=== PATIENT | male | born 1975 | race Caucasian/White ===

== ENCOUNTER 2016-12-28 21:56 | Emergency (ER) | payer BC ==
[~2016-12-28] VITALS: Ht 170.2 cm; Wt 71.0 kg
[2016-12-28 22:05] VITALS: Ht 170.2 cm; Wt 71.0 kg
[2016-12-28] MEDS ORDERED: ONDANSETRON 4 MG INJ IV STA (22:47)
[2016-12-28] MEDS ORDERED: morphine 4 MG/ML VIAL IV STA (22:47)
[2016-12-28] MEDS ORDERED: SOD CHLORIDE 0.9% 1,000 ML IV STA (22:47)
[2016-12-28] MEDS ORDERED: KETOROLAC 30 MG INJ IV STA (22:47)
--- NOTE | 2016-12-28 23:33 | RADRPT ---
PROCEDURE: CT ABDOMEN AND PELVIS WITHOUT CONTRAST: CLINICAL INDICATION: 41 years of age, male. Right flank pain. COMPARISON: Report of CT August 08, 2013 TECHNIQUE: CT of the abdomen, and pelvis was performed without intravenous contrast. Oral contrast w as not administered prior to the examination. Coronal and sagittal reformatted images were obtained from the axial source images. Images were revi ewed on a high-resolution PACS workstation. Dose information: Based on a 32 cm phantom, the estimated radiation dose (CTDI vol mGy) for each ser ies in this exam is 8 . The estimated cumulative dose (DLP mGy-cm) is 485 . FINDINGS: In the absence of intravenous contrast, the study constitutes a limited assessment of the solid orga ns and vessels. LUNG BASES: Mild dependent atelectasis. ABDOMEN/PELVIS: Liver: Normal. Gallbladder: Normal. Bile ducts: No intrahepatic or extrahepatic biliary duct dilatation. Spleen: Normal. Pancreas: Normal. Adrenal glands: Normal. Kidneys and ureters: There is a 0.8 cm obstructing calculus in the distal right ureter at the right UVJ with moderate right hydronephrosis and hydroureter and right perinephric fat stranding. There a re bilateral nonobstructing renal calculi measuring up to 0.4 cm that are more numerous on the right . Negative for left hydronephrosis. Bilateral renal parenchymal hypodensities cannot be characteri zed without intravenous contrast but statistically represent cysts. Aorta and IVC: Mild atherosclerosis aorta. No aneurysm. Lymph nodes: Normal. Gastrointestinal tract: Stomach is moderately distended from a recent meal. Bowel loops are otherwis e decompressed. Appendix: Normal Bladder: Normal. Pelvic Organs: Normal. Peritoneal cavity: No free fluid or free intraperitoneal air. Abdominal wall: Normal. 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 Disk bulge at L5-S1. No suspicious bone lesi ons. IMPRESSION: 0.8 cm obstructing calculus at the right UVJ with moderate right hydronephrosis and hydroureter. Bilateral nonobstructing renal calculi more numerous on the right. RPTAT: HCTS Lorenzo Smith, Physician Date Time Electronically viewed and signed by Lorenzo Smith, Physician on 12/28/2016 23:33 CS/
[2016-12-28 23:43] LABS: BASOPHIL # 0.1 10^3/ul (0.0-0.1); BASOPHILS % 0.5 % (0.0-2.0); EOSINOPHILS # 0.2 10^3/ul (0.0-0.5); EOSINOPHILS % 1.1 % (0.0-7.0); HEMATOCRIT 43.7 % (42.0-52.0); HEMOGLOBIN 14.5 g/dl (14.0-18.0); LYMPHOCYTES # 2.2 10^3/ul (0.8-2.9); LYMPHOCYTES % 14.6 % (15.0-51.0); MEAN CORPUSCULAR HEMOGLOBIN 30.5 pg (29.0-33.0); MEAN CORPUSCULAR HGB CONC 33.2 g/dl (32.0-37.0); MEAN PLATELET VOLUME 10.3 fl (7.4-10.4); MONOCYTES % 6.4 % (0.0-11.0); NEUTROPHIL # 11.7 10^3/ul (1.6-7.5); PLATELET COUNT 266 10^3/UL (140-415); RED BLOOD COUNT 4.75 10^6/ul (4.70-6.10); RED CELL DISTRIBUTION WIDTH 12.5 % (11.5-14.5); WHITE BLOOD COUNT 15.1 10^3/ul (4.8-10.8)
--- NOTE | 2016-12-28 23:44 | ERD ---
ER Documentation Chief Complaint Date/Time DATE: 12/28/16 Chief Complaint Right flank pain HPI The patient is a 41-year-old male who presents to the Emergency Department with complaint of flank pain. The patient reports that his symptoms began at 8:00 am this morning, with onset of right-sided flank pain radiating towards the right groin. He notes that his pain is constant, though waxing and waning in intensity. He reports his current pain as 4/10, but notes that his pain increases in waves to 10/10 intermittently. He took a dose of Tylenol at noon today, with very minimal relief, and has not taken any further medication today. He admits to associated nausea, with one episode of nonbilious, nonbloody emesis. Otherwise, denies any dysuria, urinary frequency, urgency, hesitancy, hematuria. Denies fevers, sweats, chills, chest pain, palpitations, shortness of breath. The patient reports a history of prior kidney stones - four times- and states that his current symptoms feel similar. No other complaints at this time. ROS All systems reviewed and are negative except as per history of present illness. Medications Home Meds Active Scripts Tamsulosin Hcl* (Flomax*) 0.4 Mg Cap.er.24h, 0.4 MG PO QPM, #30 CAP Prov:REN PATRICK PA-C 12/28/16 Ibuprofen* (Motrin*) 600 Mg Tab, 600 MG PO Q6, #30 TAB Prov:REN PATRICK PA-C 12/28/16 Hydrocodone/Acetaminophen (Conklin 5-325 Tablet) 1 Each Tablet, 1 EACH PO Q6, #15 TAB Prov:REN PATRICK PA-C 12/28/16 Allergies Allergies: Coded Allergies: No Known Allergy (Unverified , 08/08/13) PMhx/Soc History of Surgery: No Anesthesia Reaction: No Hx Neurological Disorder: No Hx Respiratory Disorders: No Hx Cardiac Disorders: No Hx Psychiatric Problems: No Hx Miscellaneous Medical Probl: Yes (KIDNEY STONES) Hx Alcohol Use: Yes (OCCASSIONAL) Hx Substance Use: No Hx Tobacco Use: No Physical Exam Vitals Vital Signs Date Time Temp Pulse Resp B/P Pulse Ox O2 Delivery O2 Flow Rate FiO2 12/29/16 03:01 98.5 88 20 130/82 100 Room Air 12/28/16 22:05 98.5 97 20 163/89 100 Physical Exam GENERAL: Well-developed, well-nourished, in no acute distress HEENT: Head is normocephalic, atraumatic. No scleral pallor or icterus. Pupils equal, round and reactive to light. Extraocular movements intact. Conjunctiva pink. Moist mucous membranes. NECK: Supple. Full range of motion. RESPIRATORY: Lungs are clear to auscultation bilaterally. Equal breath sounds. Normal expiratory effort. CARDIOVASCULAR: Regular rate and rhythm. S1 and S2 normal. No murmurs, rubs, or gallops. GASTROINTESTINAL: Abdomen is soft, nontender, and nondistended. No guarding, no rebound tenderness. Normal bowel sounds. No gross peritonitis. No McBurney point tenderness. Negative Lamb's sign. FLANK: No CVA tenderness, no mass or swelling. BACK: No midline tenderness. No paraspinal tenderness. EXTREMITIES: No clubbing, cyanosis, or edema. Normal skin perfusion. Moving all extremities. Muscle tone is normal. No focal swelling or erythema. Distal pulses are palpable, 2+ bilaterally. Capillary refill is less than 2 seconds. NEUROLOGIC: The patient is alert, awake, and oriented x 3. No focal neurologic deficits. INTEGUMENT: Skin is clean, dry and intact. No rashes, lesions or petechiae present. Normal turgor. PSYCHIATRIC: Appropriate; Cooperative. Result Diagram: 12/28/16230912/28/162309 Results 24 hrs Laboratory Tests Test 12/28/16 23:10 12/29/16 01:00 White Blood Count 15.110^3/ul Red Blood Count 4.7510^6/ul Hemoglobin 14.5g/dl Hematocrit 43.7% Mean Corpuscular Volume 92.0fl Mean Corpuscular Hemoglobin 30.5pg Mean Corpuscular Hemoglobin Concent 33.2g/dl Red Cell Distribution Width 12.5% Platelet Count 35250^3/UL Mean Platelet Volume 10.3fl Neutrophils % 77.0% Lymphocytes % 14.6% Monocytes % 6.4% Eosinophils % 1.1% Basophils % 0.5% Nucleated Red Blood Cells % 0.0/100WBC Neutrophils # 11.710^3/ul Lymphocytes # 2.210^3/ul Monocytes # 1.010^3/ul Eosinophils # 0.210^3/ul Basophils # 0.110^3/ul Nucleated Red Blood Cells # 0.010^3/ul Sodium Level 143mmol/L Potassium Level 3.8mmol/L Chloride Level 99mmol/L Carbon Dioxide Level 29mmol/L Anion Gap 19 Blood Urea Nitrogen 23mg/dl Creatinine 1.39mg/dl Glucose Level 125mg/dl Calcium Level 9.4mg/dl Total Bilirubin 0.1mg/dl Direct Bilirubin 0.00mg/dl Indirect Bilirubin 0.1mg/dl Aspartate Amino Transf (AST/SGOT) 26IU/L Alanine Aminotransferase (ALT/SGPT) 41IU/L Alkaline Phosphatase 108IU/L Total Protein 7.8g/dl Albumin 4.1g/dl Globulin 3.70g/dl Albumin/Globulin Ratio 1.10 Lipase 72U/L Urine Color STRAW Urine Clarity CLEAR Urine pH 6.0 Urine Specific [place] 1.017 Urine Ketones NEGATIVEmg/dL Urine Nitrite NEGATIVEmg/dL Urine Bilirubin NEGATIVEmg/dL Urine Urobilinogen NEGATIVEmg/dL Urine Leukocyte Esterase NEGATIVELeu/ul Urine Microscopic RBC > 182/HPF Urine Microscopic WBC 16/HPF Urine Amorphous Crystals MANY/HPF Urine Hemoglobin 3+mg/dL Urine Glucose NEGATIVEmg/dL Urine Total Protein NEGATIVEmg/dl Current Medications Medications (Trade) Dose Ordered Sig/Temitope Route PRN Reason Start Time Stop Time Status Last Admin Dose Admin Sodium Chloride (NS) 1,000 ml @ 1,000 mls/hr Q1H STAT IV 12/28/16 22:47 12/28/16 23:46 DC 12/28/16 23:40 Morphine Sulfate (morphine) 4 mg ONCE STAT IV 12/28/16 22:47 12/28/16 22:49 DC 12/28/16 23:16 Ondansetron HCl (Zofran Inj) 4 mg ONCE STAT IV 12/28/16 22:47 12/28/16 22:49 DC 12/28/16 23:15 Ketorolac Tromethamine (Toradol) 30 mg ONCE STAT IV 12/28/16 22:47 12/28/16 22:49 DC 12/28/16 23:15 Morphine Sulfate (morphine) 4 mg ONCE STAT IV 12/29/16 02:08 12/29/16 02:09 DC 12/29/16 02:21 Tamsulosin HCl (Flomax) 0.4 mg ONCE ONCE PO 12/29/16 02:30 12/29/16 02:31 DC 12/29/16 02:28 Procedures/MDM EMERGENCY DEPARTMENT COURSE: The patient was stable throughout the ED course. I kept the patient informed of all laboratory and imaging results throughout the ED course. IV access established by nursing staff. Fluids, Toradol, Morphine, Zofran administered. Laboratory testing and CT imaging ordered. On reevaluation, the patient reports no new complaints and decreased pain. The patient case was reviewed and discussed with ED attending/supervising physician, Dr. Ford, who agrees with the plan of care, including labs, treatment and advanced imaging as appropriate. The patient's presentation, laboratory results and imaging results were discussed at length with Dr. Ford, who consulted urologist, Dr. Rodriguez, regarding patient's care. Per recommendations of Dr. Rodriguez and Dr. Ford, the patient is to be discharged home with prescriptions for Tamsulosin and pain medications to follow up with his primary medical provider and urologist as an outpatient. DIAGNOSTIC TESTS AND INTERPRETATION: PROCEDURE: CT ABDOMEN AND PELVIS WITHOUT CONTRAST: CLINICAL INDICATION: 41 years of age, male. Right flank pain. COMPARISON: Report of CT August 08, 2013 TECHNIQUE: CT of the abdomen, and pelvis was performed without intravenous contrast. Oral contrast was not administered prior to the examination. Coronal and sagittal reformatted images were obtained from the axial source images. Images were reviewed on a high-resolution PACS workstation. Dose information: Based on a 32 cm phantom, the estimated radiation dose (CTDI vol mGy) for each series in this exam is 8 . The estimated cumulative dose ( DLP mGy-cm) is 485 . FINDINGS: In the absence of intravenous contrast, the study constitutes a limited assessment of the solid organs and vessels. LUNG BASES: Mild dependent atelectasis. ABDOMEN/PELVIS: Liver: Normal. Gallbladder: Normal. Bile ducts: No intrahepatic or extrahepatic biliary duct dilatation. Spleen: Normal. Pancreas: Normal. Adrenal glands: Normal. Kidneys and ureters: There is a 0.8 cm obstructing calculus in the distal right ureter at the right UVJ with moderate right hydronephrosis and hydroureter and right perinephric fat stranding. There are bilateral nonobstructing renal calculi measuring up to 0.4 cm that are more numerous on the right. Negative for left hydronephrosis. Bilateral renal parenchymal hypodensities cannot be characterized without intravenous contrast but statistically represent cysts. Aorta and IVC: Mild atherosclerosis aorta. No aneurysm. Lymph nodes: Normal. Gastrointestinal tract: Stomach is moderately distended from a recent meal. Bowel loops are otherwise decompressed. Appendix: Normal Bladder: Normal. Pelvic Organs: Normal. Peritoneal cavity: No free fluid or free intraperitoneal air. Abdominal wall: Normal. 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 Disk bulge at L5-S1. No suspicious bone lesions. IMPRESSION: 0.8 cm obstructing calculus at the right UVJ with moderate right hydronephrosis and hydroureter. Bilateral nonobstructing renal calculi more numerous on the right. Physician Tanya Date Time Electronically viewed and signed by Lorenzo Smith Physician on 12/28/2016 23: 33 MEDICAL DECISION MAKING: This is a 41-year-old male presenting to the Emergency Department with complaint of right flank pain. He had no lower abdominal tenderness or McBurney point tenderness to suggest appendicitis. Abdomen was soft, non-tender, non- distended, no indication of acute/surgical abdomen. No RUQ tenderness to suggest cholecystitis, choledocholithiasis. Differential diagnosis includes, but is not limited to, AAA, nephrolithiasis, cystitis, pyelonephritis, biliary colic, pancreatitis, appendicitis, aortic dissection, mesenteric ischemia, hernia, perforated viscous, diverticulitis, bowel obstruction, cancer, testicular torsion, fibroids, shingles, retroperitoneal abscess/ hematoma. CBC reveals no significant anemia. No significant electrolyte abnormalities noted to require medication replacement. No transaminitis. Creatinine and BUN mildly elevated, 1.39 and 23, respectively. Signs and symptoms not consistent with urinary tract infection, and urine dip reveals no leukocyte esterase, no nitrites. I do not suspect pyelonephritis or cystitis. CT abdomen and pelvis reveals a 0.8 cm obstructing calculus at the right UVJ with moderate right hydronephrosis and hydroureter, consistent with a diagnosis of acute ureterolithiasis, and likely, ureteral colic, causing the patient's right flank pain. After rest and administration of fluids and medications, the patient reports no new complaints, and significantly decreased pain. The patient's case was discussed with ED physician, Dr. Ford, and urologist, Dr. Rodriguez, who recommend discharge home. At this time, the patient is in stable condition and therefore can be discharged home with prescriptions for Conklin, Ibuprofen and Flomax, and given strict return precautions for signs of deteriorating or worsening condition. The patient is advised to follow up with their primary care provider and urologist within 2-3 days for reevaluation and further management, or return to the ER sooner for any worsening symptoms. I shared my medical decision making and plan with the patient at length and in great detail, and the patient verbally understands and agrees with the plan for further observation and care as an outpatient. At the time of discharge, all questions were answered. Departure Diagnosis: Primary Impression: Ureterolithiasis Additional Impressions: Right flank pain Ureteral colic Condition: Stable Patient Instructions: Kidney Stone W/ Colic, Preventing Kidney Stones, Understanding Kidney Stones Referrals: REJI RODRIGUEZ MD, RICHARD MD Additional Instructions: Call your primary care doctor and urologist TOMORROW for an appointment during the next 2-3 days.See the doctor sooner or return here if your condition worsens before your appointment time. REN PATRICK PA-C Dec 28, 2016 23:44
[2016-12-28] MEDS ORDERED: HYDR-906 PO (23:45)
[2016-12-28] MEDS ORDERED: IBUP-1542 PO (23:45)
[2016-12-28] MEDS ORDERED: TAMS-14 PO (23:45)
[2016-12-29] LABS: ALBUMIN 4.1 g/dl (3.3-4.9); ALBUMIN/GLOBULIN RATIO 1.1; BILIRUBIN,INDIRECT 0.1 mg/dl (0-1.1); BILIRUBIN,TOTAL 0.1 mg/dl (0.2-1.3); CALCIUM 9.4 mg/dl (8.4-10.2); CREATININE 1.39 mg/dl (0.61-1.24); POTASSIUM 3.8 mmol/L (3.5-5.1); TOTAL PROTEIN 7.8 g/dl (6.1-8.1)
[2016-12-29] MEDS ORDERED: morphine 4 MG/ML VIAL IV STA (02:08)
[2016-12-29 02:14] LABS: UR AMORPHOUS CRYSTAL MANY /HPF (NONE SEEN)
[2016-12-29 02:15] LABS: ADD UMIC YES; UR ASCORBIC ACID NEGATIVE (NEGATIVE); UR BILIRUBIN (Dip) NEGATIVE (NEGATIVE); UR BLOOD (Dip) 3+ mg/dL (NEGATIVE); UR CLARITY CLEAR (CLEAR); UR COLOR STRAW (YELLOW); UR GLUCOSE (Dip) NEGATIVE (NEGATIVE); UR KETONES (Dip) NEGATIVE (NEGATIVE); UR LEUKOCYTE ESTERASE (Dip) NEGATIVE Leu/ul (NEGATIVE); UR NITRITE (Dip) NEGATIVE (NEGATIVE); UR SPECIFIC GRAVITY (Dip) 1.017 (1.003-1.030); UR TOTAL PROTEIN (Dip) NEGATIVE (NEGATIVE); UR UROBILINOGEN (Dip) NEGATIVE (NEGATIVE)
[2016-12-29] MEDS ORDERED: TAMSULOSIN (SR) 0.4 MG CAP PO ONE (02:30)
[2016-12-29 02:38] LABS: UR RBC > 182 /HPF (0-5)
[2016-12-29 03:01] VITALS: BP 130/82; PULSE 88; RESP 20; TEMP 98.5
== END 2016-12-29 02:50 | disposition home or self-care (01) ==
LOC: FTE 21:56
DX: N20.1 Calculus of ureter (principal); N23 Unspecified renal colic; R11.2 Nausea with vomiting, unspecified
CPT/HCPCS: 36415; 74176; 80053; 81001; 83690; 85025; 96374; 96375; 96376; 99285; J1885; J2270; J2405; J7030